=== PATIENT | male | born 1980 | race Caucasian/White ===

== ENCOUNTER 2018-12-29 08:51 | Emergency (ER) | payer OTHER ==
[~2018-12-29] VITALS: Wt 72.6 kg
[~2018-12-29 08:51] MED LIST: AMOXICILLIN500 MG PO; KEFLEX500 MG PO; PHENERGAN25 MG RC; PREVACID SOLUTA30 MG PO
[2018-12-29] MEDS ORDERED: LORATADINE10 M3 PO (08:52)
[2018-12-29] MEDS ORDERED: AUGMENTIN 875875 MG PO (09:55)
== END 2018-12-29 10:00 | disposition home or self-care (01) ==
LOC: ED 08:51
DX: J01.90 Acute sinusitis, unspecified (principal); Z79.899 Other long term (current) drug therapy

== ENCOUNTER → 2021-01-21 | Outpatient (CLI) | payer BC, OTHER ==
[~2021-01-21] MED LIST changes: +AUGMENTIN 875875 MG PO; +LORATADINE10 M3 PO
== END | disposition home or self-care (01) ==
LOC: COVID19 08:16
PROVIDERS: ATTEND Internal Medicine
DX: Z20.822 Contact with and (suspected) exposure to COVID-19 (principal)